=== PATIENT | male | born 1990 | race Caucasian/White ===

== ENCOUNTER 2017-12-11 12:55 | Emergency (ER) | payer OTHER ==
[~2017-12-11 12:55] MED LIST: EMTRICITABINE/TENOFOVIR 200MG/300MG TAB PO SCH; RALTEGRAVIR 400 MG TAB PO SCH
--- NOTE | 2017-12-11 13:03 | EDPHY ---
H & P Time Seen by Provider: 12/11/17 13:00 Constitutional: Initial Vital Signs Temperature (C) 36.4 C 12/11/17 13:08 Heart Rate 73 12/11/17 13:08 Respiratory Rate 18 12/11/17 13:08 Blood Pressure 142/76 H 12/11/17 13:08 O2 Sat (%) 96 12/11/17 13:08 O2 Delivery Mode Room Air Allergies/Adverse Reactions: procaine [From Novocain] Allergy (Verified 12/11/17 13:38) Home Medications: Medication Instructions Recorded Emtricitabine/Tenofovir [Truvada 1 tab PO DAILY #7 tab 12/11/17 200MG/300MG (*)] Lisinopril 12/11/17 Raltegravir [Isentress] 400 mg PO BID #14 tab 12/11/17 Medical Decision Making ED Course/Re-evaluation: CHIEF COMPLAINT: Needle prick at work HISTORY OF PRESENT ILLNESS: The patient is a 27 y/o male complaining of a needle prick on his left 2nd digit at work today. 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 There was a spot of blood on the skin of the patient receiving the injection. He was unable to give the medication to the patient. After the finger prick, he washed his hands and applied alcohol to the site of the needle stick. Denies chest pain, shortness of breath, abdominal pain, urinary or bowel complaints, headache, numbness, tingling, fever. REVIEW OF SYSTEMS: A 10 point review of systems was performed and is negative with the exception of the elements mentioned in the history of present illness. PHYSICAL EXAM: HR, BP, O2 Sat, RR. Temp noted General Appearance: Alert, well hydrated, appropriate, and non-toxic appearing. Head: Atraumatic without scalp tenderness or obvious injury Eyes: Pupils equal, round, reactive to light and accommodation, EOMI, no trauma , no injection. Ears: Clear bilaterally, no perforation, normal landmarks Nose: Atraumatic, no rhinorrhea, clear. Throat: Mucus membranes moist. Neck: Supple, nontender, no lymphadenopathy. Respiratory: No retractions, no distress, no wheezes, and no accessory muscle use. Lungs are clear to auscultation bilaterally. Cardiovascular: Regular rate and rhythm, no murmurs, rubs, or gallops. Bilateral carotid, radial, dorsalis pedis, and posterior tibial pulses intact. Good capillary refill all extremities. Gastrointestinal: Abdomen is soft, nontender, non-distended, no masses, no rebound, no guarding, no peritoneal signs. Musculoskeletal: Small needle prick on left volar second digit that is difficult to visualize. Normal active ROM of all extremities. Neurological: Alert, appropriate, and interactive. Nonfocal neuro. Skin: No rashes, good turgor, no nodules on palpation. Past medical history: Denies Past surgical history: Denies Family history: Denies Social history: Employed at [employer], lives in [place], [facility] DIFFERENTIAL DIAGNOSIS: The differential diagnosis for the patient's needle prick included but was not limited to needle stick, HIV exposure, bacterial infection, viral syndrome. MEDICAL DECISION MAKING: The patient is a 27 y/o male complaining of a needle prick on his left volar 2nd digit at work today. The patient receiving the subcutaneous injection is HIV positive. On exam there is a small needle prick on left second digit that is difficult to visualize. 1310: Consulted with Dr. Vasquez, infectious disease, regarding this patient. The HIV positive patient is on anti retrovirals and had a viral load of 120 on , 7 days ago. The HIV positive patient was also negative for Hepatitis B and C. Patient will be started on a 7 day postexposure prophylactics as ID cannot see this patient till next week. Labs ordered to look at immune status and per postexposure protocol. 1316: Reassessed patient and discussed postexposure prophylactics and labs. His first dose of these medications will be given in this emergency department. Patient is comfortable with this plan. I have advised him to follow up with infectious disease within the next week. - Data Points Laboratory Results: Laboratory Results 12/11/17 13:06 12/11/17 13:06 12/11/17 12/11/17 12/11/17 13:06 13:06 13:06 WBC 4.39 10^3/uL 10^3/uL (3.80-9.50) RBC 5.21 10^6/uL 10^6/uL (4.40-6.38) Hgb 15.7 g/dL g/dL (13.7-17.5) Hct 44.0 % % (40.0-51.0) MCV 84.5 fL fL (81.5-99.8) MCH 30.1 pg pg (27.9-34.1) MCHC 35.7 g/dL g/dL (32.4-36.7) RDW 12.3 % % (11.5-15.2) Plt Count 195 10^3/uL 10^3/uL (150-400) MPV 10.5 fL fL (8.7-11.7) Neut % (Auto) 49.1 % % (39.3-74.2) Lymph % (Auto) 37.4 % % (15.0-45.0) [place] % (Auto) 10.3 % % (4.5-13.0) Eos % (Auto) 2.5 % % (0.6-7.6) Baso % (Auto) 0.5 % % (0.3-1.7) Nucleat RBC Rel Count 0.0 % % (0.0-0.2) Absolute Neuts (auto) 2.16 10^3/uL 10^3/uL (1.70-6.50) Absolute Lymphs (auto) 1.64 10^3/uL 10^3/uL (1.00-3.00) Absolute Monos (auto) 0.45 10^3/uL 10^3/uL (0.30-0.80) Absolute Eos (auto) 0.11 10^3/uL 10^3/uL (0.03-0.40) Absolute Basos (auto) 0.02 10^3/uL 10^3/uL (0.02-0.10) Absolute Nucleated RBC 0.00 10^3/uL 10^3/uL (0-0.01) Immature Gran % 0.2 % % (0.0-1.1) Immature Gran # 0.01 10^3/uL 10^3/uL (0.00-0.10) PT 13.5 SEC SEC (12.0-15.0) INR 1.01 (0.83-1.16) APTT 26.9 SEC SEC (23.0-38.0) Sodium 140 mEq/L mEq/L (135-145) Potassium 4.4 mEq/L mEq/L (3.3-5.0) Chloride 102 mEq/L mEq/L (97-110) Carbon Dioxide 26 mEq/l mEq/l (22-31) Anion Gap 12 mEq/L mEq/L (8-16) BUN 16 mg/dL mg/dL (7-23) Creatinine 0.9 mg/dL mg/dL (0.7-1.3) Estimated GFR > 60 Glucose 97 mg/dL mg/dL (70-100) Calcium 9.8 mg/dL mg/dL (8.5-10.4) Total Bilirubin 1.9 mg/dL H mg/dL (0.1-1.4) Conjugated Bilirubin 0.2 mg/dL mg/dL (0.0-0.5) Unconjugated Bilirubin 1.7 mg/dL H mg/dL (0.0-1.1) AST 47 IU/L IU/L (17-59) ALT 68 IU/L IU/L (21-72) Alkaline Phosphatase 84 IU/L IU/L (38-126) Total Protein 6.9 g/dL g/dL (6.3-8.2) Albumin 4.1 g/dL g/dL (3.5-5.0) Lipase 62 IU/L IU/L (23-300) Hep Bs Antibody Hep Bs Antibody, Quant Hepatitis C Antibody HIV 1&2 Antigen & Ab 12/11/17 12/11/17 13:06 13:06 WBC RBC Hgb Hct MCV MCH MCHC RDW Plt Count MPV Neut % (Auto) Lymph % (Auto) [place] % (Auto) Eos % (Auto) Baso % (Auto) Nucleat RBC Rel Count Absolute Neuts (auto) Absolute Lymphs (auto) Absolute Monos (auto) Absolute Eos (auto) Absolute Basos (auto) Absolute Nucleated RBC Immature Gran % Immature Gran # PT INR APTT Sodium Potassium Chloride Carbon Dioxide Anion Gap BUN Creatinine Estimated GFR Glucose Calcium Total Bilirubin Conjugated Bilirubin Unconjugated Bilirubin AST ALT Alkaline Phosphatase Total Protein Albumin Lipase Hep Bs Antibody Pending Hep Bs Antibody, Quant Pending Hepatitis C Antibody Pending HIV 1&2 Antigen & Ab Pending Medications Given: Discontinued Medications Emtricitabine/Tenofovir (Truvada) 1 tab PO EDNOW ONE Stop: 12/11/17 13:20 Last Admin: 12/11/17 13:26 Dose: 1 tab Raltegravir (Isentress) 400 mg PO EDNOW ONE Stop: 12/11/17 13:20 Last Admin: 12/11/17 13:26 Dose: 400 mg Departure - Departure Disposition: Home, Routine, Self-Care Clinical Impression: Exposure to HIV Needle stick injury of finger Qualifiers: Encounter type: initial encounter Qualified Code(s): S61.239A - Puncture wound without foreign body of unspecified finger without damage to nail, initial encounter Condition: Good Instructions: Needle Stick Injuries (ED), Postexposure Prophylaxis (ED) Additional Instructions: 1. Take the postexposure prophylactics as prescribed. 2. Follow up with Infectious Disease in the next week. Please call Dr. Melinda Au in the next 3 days. Referrals: Work Comp Referral [facility] [place] [Outside] - As per Instructions Melinda Au MD [Medical Doctor] - As per Instructions Prescriptions: Emtricitabine/Tenofovir [Truvada 200MG/300MG (*)] 1 tab PO DAILY #7 tab Raltegravir [Isentress] 400 mg PO BID #14 tab Report Scribed for: Aníbal Leblanc Report Scribed by: Lyndsay Sotelo Date of Report: 12/11/17 Time of Report: 13:04
[2017-12-11 13:10] VITALS: BP 142/76
[2017-12-11] MEDS ORDERED: RALTEGRAVIR 400 MG TAB PO ONE (13:19)
[2017-12-11] MEDS ORDERED: EMTRICITABINE/TENOFOVIR 200MG/300MG TAB PO ONE (13:19)
[2017-12-11 13:41] LABS: PLATELET COUNT 195 10^3/uL (150-400)
[2017-12-11 13:43] LABS: INR 1.01 (0.83-1.16); PROTIME(PATIENT) 13.5 SEC (12.0-15.0)
--- NOTE | 2017-12-11 14:31 | ASMTCMCOM ---
CM Note CM Note Notes: I Spoke with [employer] in pharmacy regarding clarification on a prescription request for patient. Patient is an employee who sustained a needle stick on an HIV positive patient. Medication to be filled will go through [facility], not "[facility]" program. I have LM with saulo Delgadillo and Dana Herbert in [facility] for follow up Date Signed: 12/11/2017 02:30 PM Electronically Signed By:Lashay Miles RN
[2017-12-11 15:22] LABS: HEPATITIS C ANTIBODY TOTAL NEGATIVE (NEGATIVE)
== END 2017-12-11 13:42 | disposition home or self-care (01) ==
DX: S61.231A Puncture wound without foreign body of left index finger without damage to nail, initial encounter (principal); Z20.6 Contact with and (suspected) exposure to human immunodeficiency virus [HIV]; W46.0XXA Contact with hypodermic needle, initial encounter; Y99.0 Civilian activity done for income or pay; Y93.89 Activity, other specified
CPT/HCPCS: G0472